=== PATIENT | male | born 1975 | race Two or more races ===

== ENCOUNTER 2022-01-17 09:43 | Outpatient (CLI) | payer OTHER | END 2022-01-17 09:44 | disposition home or self-care (01) | LOC: LAB 09:43 | PROVIDERS: ATTEND Specialist | DX: D68.8 Other specified coagulation defects (principal); E78.89 Other lipoprotein metabolism disorders; R82.79 Other abnormal findings on microbiological examination of urine ==

== ENCOUNTER 2025-03-20 20:01 | Emergency (ER) | payer OTHER ==
[~2025-03-20] VITALS: Ht 180.3 cm; Wt 89.8 kg
[2025-03-20] MEDS ORDERED: CETIRIZINE HCL 10 MG TABLET PO ONE (23:45)
[2025-03-20] MEDS ORDERED: CEFTRIAXONE SODIUM 1,000 MG VIAL IM ONE (23:45)
[2025-03-20] MEDS ORDERED: DEXAMETHASONE SODIUM PHOSPHATE 4 MG/ML VIAL IM ONE (23:45)
[2025-03-21] MEDS ORDERED: CETIRIZINE HCL 10 MG TABLET PO ONE (00:22)
[2025-03-21] MEDS ORDERED: CEFTRIAXONE SODIUM 1,000 MG VIAL ONE (00:23)
[2025-03-21] MEDS ORDERED: DEXAMETHASONE SODIUM PHOSPHATE 4 MG/ML VIAL ONE (00:23)
[2025-03-21 01:29] LABS: BUN CREA RATIO 20.0 (7.0-25.0); CREATININE SERUM 1.03 mg/dL (0.70-1.30); GFR 77.08; GLUCOSE FASTING 107.0 mg/dL (65-100); OSMOLALITY SERUM 283.0 MOSM/KG (275-295)
[2025-03-21 01:47] LABS: BASO % 0.5 % (0.1-1.2); EOS # 0.15 (0.04-0.54); EOS % 2.0 % (0.7-7.0); LYMPH # 2.49 (1.18-3.74); LYMPH % 32.4 % (19.3-53.1); MEAN PLATELET VOLUME 10.00 fl (9.4-12.4); MONO # 0.70 (0.24-0.82); MONO % 9.1 % (4.7-12.5); NEUT # 4.29 (1.56-6.13); NEUT % 55.9 % (34.0-71.1); RED CELL DISTRIBUTION WIDTH 11.9 % (11.6-14.4)
[2025-03-21 02:00] LABS: ERYTHROCYTE SEDIMENTATION RATE 48 mm/hr (0-15)
[2025-03-21] MEDS ORDERED: AMOX-CLAV 875-1 EACH PO (04:24)
[2025-03-21] MEDS ORDERED: FLONASE ALLERG9.9 ML NASAL (04:24)
[2025-03-21] MEDS ORDERED: ALL DAY ALLERGY10 M3 PO (04:24)
== END 2025-03-21 04:28 | disposition home or self-care (01) ==
LOC: ER 20:02
PROVIDERS: Student in an Organized Health Care Education/Training Program
DX: J01.90 Acute sinusitis, unspecified (principal); R51.9 Headache, unspecified; Z88.2 Allergy status to sulfonamides
CPT/HCPCS: 36415; 70450; 70460; Q9965

== ENCOUNTER 2025-03-22 21:39 | Emergency (ER) | payer OTHER ==
[~2025-03-22] VITALS: Ht 180.3 cm; Wt 89.4 kg
[~2025-03-22 21:39] MED LIST: ALL DAY ALLERGY10 M3 PO; AMOX-CLAV 875-1 EACH PO; FLONASE ALLERG9.9 ML NASAL
[2025-03-23] MEDS ORDERED: KETOROLAC TROMETHAMINE 30 MG VIAL ONE (00:20)
[2025-03-23] MEDS ORDERED: DEXAMETHASONE SODIUM PHOSPHATE 4 MG/ML VIAL ONE (00:20)
[2025-03-23] MEDS ORDERED: KETOROLAC TROMETHAMINE 30 MG VIAL IM ONE (00:30)
[2025-03-23] MEDS ORDERED: GABAPENTIN 400 MG CAPSULE PO ONE (00:30)
[2025-03-23] MEDS ORDERED: DEXAMETHASONE SODIUM PHOSPHATE 4 MG/ML VIAL IM ONE (00:30)
[2025-03-23] MEDS ORDERED: BUTALB-ACETAMI1 EACH PO (01:06)
[2025-03-23] MEDS ORDERED: MEDROLPACK PO (01:06)
[2025-03-23] MEDS ORDERED: NEURONTIN300 MG PO (01:06)
[2025-03-23] MEDS ORDERED: NEURONTIN600 M1 PO (01:06)
== END 2025-03-23 01:19 | disposition home or self-care (01) ==
LOC: ER 21:39
DX: G50.0 Trigeminal neuralgia (principal); J01.80 Other acute sinusitis; Z88.2 Allergy status to sulfonamides